=== PATIENT | female | born 1990 | race Caucasian/White ===

== ENCOUNTER 2017-04-30 15:44 | Emergency (ER) | payer OTHER ==
[~2017-04-30] VITALS: Ht 152.4 cm; Wt 85.9 kg
[~2017-04-30 15:44] MED LIST: DPPI400 INJ
[2017-04-30 15:56] VITALS: Ht 152.4 cm; Wt 85.9 kg
[2017-04-30] MEDS ORDERED: IBUPROFEN 600 MG TAB PO STA (16:05)
[2017-04-30] MEDS ORDERED: SPIR50TA2 PO (16:14)
--- NOTE | 2017-04-30 16:30 | DIAGNOSTIC IMAGING REPORT ---
L FINGER(S) MIN 2 VIEWS ROUTINE CLINICAL HISTORY: left thumb pain, IP joint, fall COMPARISON: None. DISCUSSION: The bones and joint spaces appear intact. There is no evidence of fracture, dislocation or bony disease. There is no evidence for soft tissue swelling. IMPRESSION: Negative study. The above report was generated using voice recognition software. It may contain grammatical, syntax or spelling errors. Electronically signed by: Dominik Chance M.D. 04/30/2017 4:29 PM Dictated Date/Time: 04/30/2017 4:28 PM
--- NOTE | 2017-04-30 16:50 | EMERGENCY ROOM VISIT NOTE ---
ED Visit Note First contact with patient: 16:00 CHIEF COMPLAINT: Left thumb pain HISTORY OF PRESENT ILLNESS: This 26-year-old female patient presented to the emergency department one day after they injured the thumb. The patient states she was at a bar last night, and as she was leaving the bar, she tripped over a step. She states she fell, landing on her left thumb. She denies any head injury. She states she was intoxicated so did not notice the pain at the time. When she woke this morning, she began experiencing significant pain in the interphalangeal joint. She is not having difficulty with flexion of the thumb. The patient has not taken any pain medication, and describes the pain as coming in waves and shooting up the arm. She rates the pain 8/10 and describes it as throbbing. The patient denies any numbness or tingling. The patient does not have injuries to the hand or wrist. The patient has not had a previous fracture to this hand. REVIEW OF SYSTEMS: A 6 system review of systems was completed with positives and pertinent negatives in the HPI. ALLERGIES: None MEDICATIONS: Xanax PMH: Anxiety SOCIAL HISTORY: The patient lives locally with family. She denies tobacco use. The patient admits to smoking marijuana and drinking alcohol. PHYSICAL EXAM: Vital Signs: Reviewed Nurse's notes, vital signs stable. GENERAL : This is a 26-year-old white female, in no acute distress, but appears to be in pain, well-developed, well-nourished. MUSCULOSKELETAL: There is no deformity of the left thumb. There is tenderness the inner phalangeal joint of the left thumb. There is no thenar or hypothenar eminence atrophy. Normal thumb opposition to all fingers. There is no tenderness of the other fingers or hand. No tenderness of the wrist. Industrial Chemicals Supervisor strength 5/5. There is no laceration. Capillary refill less than 2 seconds. Full range of motion of the wrist. No snuff box tenderness. Radial pulse 2+. NEURO: Alert and oriented to person, place, and time. Normal sensation to light and sharp touch. RADIOLOGY: L FINGER(S) MIN 2 VIEWS ROUTINE CLINICAL HISTORY: left thumb pain, IP joint, fall COMPARISON: None. DISCUSSION: The bones and joint spaces appear intact. There is no evidence of fracture, dislocation or bony disease. There is no evidence for soft tissue swelling. IMPRESSION: Negative study. The above report was generated using voice recognition software. It may contain grammatical, syntax or spelling errors. Electronically signed by: Dominik Chance M.D. 04/30/2017 4:29 PM Dictated Date/Time: 04/30/2017 4:28 PM EMERGENCY DEPARTMENT COURSE: I examined the patient. The patient was given a dose of ibuprofen and did report improvement in her symptoms. An x-ray of the left thumb was reviewed by myself and radiologist and shows acute fracture or dislocation. I offer the patient a finger splint, and she does request this be given to her. The patient was placed in a finger splint, and the position was satisfactory. Discharge instructions reviewed. The patient was discharged home in good condition. I attest that I have personally reviewed the patient's current medication list. Patient was found to have normal blood pressure on screening and does not require follow-up. DIFFERENTIAL DIAGNOSIS: Contusion, fracture, sprain, strain, malignancy, and others DIAGNOSIS: Left thumb contusion Current/Historical Medications Scheduled Spironolactone (Aldactone), 50 MG PO BID Allergies Coded Allergies: No Known Allergies (Verified , 04/30/17) Vital Signs Date Time Temp Pulse Resp B/P (MAP) Pulse Ox O2 Delivery O2 Flow Rate FiO2 04/30/17 17:03 36.4 100 18 112/65 100 Room Air 04/30/17 15:56 37.0 83 16 127/81 100 Room Air Medications Administered Medications (Trade) Dose Ordered Sig/Dinh Route Start Time Stop Time Status Last Admin Dose Admin Ibuprofen (Motrin Tab) 600 mg NOW STAT PO 04/30/17 16:05 04/30/17 16:07 DC 04/30/17 16:14 600 MG Departure Information Impression Primary Impression: Contusion of left thumb Dispostion Home / Self-Care Condition GOOD Referrals Kin Andrade M.D. (PCP) Patient Instructions ED Contusion Finger, My [facility] Additional Instructions You have seen in the emergency department today for a thumb contusion. X-ray did not reveal any fracture. Ibuprofen(Motrin, Advil) may be used for fever or pain. Use 600mg every six hours as needed. Take with food. Avoid using more than 2400mg in a 24 hour period. Do not use 2400mg per day for more than three consecutive days without physician direction. Prolonged inappropriate use can lead to stomach upset or ulcers. (AND/OR) Acetaminophen(Tylenol) may be used for fever or pain. Use 1000mg every six hours as needed. Avoid using more than 3000mg in a 24 hour period. You may wear the splint for comfort, but as I discussed, I do recommend that you keep the joints loose and active as it is tolerable. Please follow up with your PCP in 3-5 days for recheck and further management, especially if you're continuing to have problems with the thumb. Return to the emergency department for redness, worsening pain, puslike drainage , fever, or other concerning symptoms. Problem Qualifiers Primary Impression: Contusion of left thumb Encounter type: initial encounter Damage to nail status: without damage Qualified Codes: S60.012A - Contusion of left thumb without damage to nail, initial encounter
[2017-04-30 17:03] VITALS: BP 112/65; PULSE 100; TEMP 36.4; O2SAT 100
== END 2017-04-30 17:10 | disposition home or self-care (01) ==
LOC: C.EDB 15:45 → C.EDD 17:10
DX: S60.012A Contusion of left thumb without damage to nail, initial encounter (principal); W18.09XA Striking against other object with subsequent fall, initial encounter; F41.9 Anxiety disorder, unspecified; Z79.899 Other long term (current) drug therapy

== ENCOUNTER 2020-03-28 21:53 | Inpatient (IN) ==
--- OUTSIDE RECORDS SUMMARY | 2020-03-28 21:57 | External Medical Summary | Continuity of Care Document ---
:1990 Author Name Josue Lemus Address Unavailable Unavailable , Care Team Providers Name Role Phone Surya BARR Unavailable [email or web address] Enrico ORLANDO Unavailable Unavailable Unavailable Unavailable Unavailable Assessments Assessed Problems:Allergic rhinitisLaryngopharyngeal reflux (LPR) Problems Laryngopharyngeal reflux (LPR) (478.79) (K21.9) Allergic rhinitis (477.9) (J30.9) Crackling sound in right ear (388.8) (H93.8X1) Allergies and Adverse Reactions No Known Drug Allergies (Allergy) Medications Vitamin E TABS Refills: 0 Vitamin D3 TABS Refills: 0 Multivitamins TABS Refills: 0 Nexplanon IMPL Refills: 0 Spironolactone 100 MG Oral Tablet Refills: 0 Procedures History of wisdom tooth extraction Statu s: Completed History of Elbow Surgery Status: Complet ed Immunizations Immunizations not documented Family History Unknown Family Member Family history of sinusitis (V17.6) (Z83.6) Status: Active Comments: Family History Family history of cardiac disorder (V17.49) Status: Active Comments: Family History (Z82.49) Social History - Smoking Status Never smoked tobacco Plan of Treatment Planned Observations Planned Goals not documented Results No Known Results Results not documented Encounters Appointment; Jensen Delaney Au.D.|CCC-A 24-Sep-2018 9:40 Encounter Diagnosis: Problem not documented Appointment; Michelle London PA-C 24-Sep-2018 10:00 Encounter Diagnosis: Problem not documented"
[2020-03-28] MEDS ORDERED: OXYTOCIN 30 UNITS/500 ML BAG IV PRN (22:32)
[2020-03-28] MEDS ORDERED: LACTATED RINGER'S 1,000 ML IV PRN (22:32)
--- NOTE | 2020-03-28 22:54 | Anesthesiology Consultation ---
Date of Service March 28, 2020 Assessment & Plan Chart Review Chart Review: Acceptable Risk for Surgery and Patient NOT seen in Pre Admission Testing Consults Requested none ASA [id number] Proposed Anesthesia Anesthesia Type: Spinal Risk / Benefits Reviewed With: PT / POA / Parent / Guardian, Accepts Plan and Informed Consent Obtained Additional Comments: covid test negative History Surgery Operation Date: 03/28/20 22:00 Proposed Procedures p Section in LD - Giovanny Ortiz MD Height/Weight Height: 5 ft Weight: 101.151 kg Allergies Allergy/AdvReac Type Severity Reaction Status Date / Time oxycodone [From Percocet] AdvReac Mild nausea/vomi Verified 03/28/20 11:23 tting Medications Home Medications Medication Instructions Recorded Confirmed Last Taken cholecalciferol (vitamin D3) 50 mcg PO QAM 03/28/20 03/28/20 03/27/20 22:00 [Vitamin D3] fexofenadine [Leanna Allergy] 1 mg PO DAILY 03/28/20 03/28/20 03/27/20 22:00 [id number] 1 tab PO DAILY 03/28/20 03/28/20 03/27/20 22:00 [] valacyclovir [Valtrex] 500 mg PO DAILY 03/28/20 03/28/20 03/27/20 22:00 vitamin E 1,000 unit PO QAM 03/28/20 03/28/20 03/28/20 22:00 Active Medications Generic Name Dose Route Start Last Admin Trade Name Freq PRN Reason Stop Dose Admin Lactated Ringer's 1,000 mls @ 125 mls/hr 03/28/20 22:32 03/28/20 22:15 Lr IV 03/30/20 22:31 999 mls/hr .Q8H PRN Administration L&D Protocol Protocol NPO Date Last Intake of Fluids: 03/28/20 Time Last Intake of Fluids: 20:15 Date Last Intake of Solids: 03/28/20 Time Last Intake of Solids: 14:00 Past Medical History Medical History (Updated 03/28/20 @ 22:52 by Giovanny Ortiz MD) Gestational diabetes History of anxiety Lab test positive for detection of COVID-19 virus Exercise / Class Metabolic Activity II 4-5 Yardwork/Stairs/Walk up hill Past Surgical History Surgical History History of open reduction and internal fixation (ORIF) procedure left elbow History of repair of laceration as child from accident Hx of wisdom tooth extraction Past Anesthesia History No Hx of Anesthesia Complications and No Family Hx of Anesthesia Complications History of PONV No Hx of PONV and No Hx of Motion Sickness Social History Smoking Status: Never smoker Hx Alcohol Use: No Hx Substance Use: No substance use type: does not use Physical Exam Vital Signs Last Vital Signs Temp 37.1 C 03/28/20 22:11 Pulse 93 H 03/28/20 22:02 Resp 18 03/28/20 22:11 BP 142/91 H 03/28/20 22:02 Constitutional + morbidly obese ENMT Mouth: + small oral opening; no dentition abnormality Thyromental Distance: < 3.5 Finger Breadths Mallampati Class: II Neck normal visual inspection and trachea midline; neck extension not limited Respiratory normal respiratory effort Auscultation: lungs clear to auscultation bilaterally Cardiovascular Rate/Rhythm: regular rate and regular rhythm Heart Sounds: no murmur Vessels: no carotid bruit Musculoskeletal Spine: lumbar spine normal to inspection; normal cervical ROM Neurologic moves all extremities Motor/Sensory: no sensory deficit Psychiatric Orientation: alert and oriented x 3 Testing Laboratory Results 03/28/20 22:42 POC Glucose 82
--- NOTE | 2020-03-28 22:55 | History & Physical Report ---
Date of Service March 28, 2020 History of Present Illness 29 F P0000 at 38.6 weeks seen on L&D for SROM clear fluisd with breech presentation. No active contractions or bleeding. FHT Cat 1. Ultrasound done at bedside on admission confirms breech. Primary Care Provider: Kin Andrade MD Allergies Allergy/AdvReac Type Severity Reaction Status Date / Time oxycodone [From Percocet] AdvReac Mild nausea/vomi Verified 03/28/20 11:23 tting Home Medications Home Medications Medication Instructions Recorded Confirmed Type cholecalciferol (vitamin D3) 50 mcg PO QAM 03/28/20 03/28/20 History [Vitamin D3] fexofenadine [Leanna Allergy] 1 mg PO DAILY 03/28/20 03/28/20 History [id number] 1 tab PO DAILY 03/28/20 03/28/20 History [] valacyclovir [Valtrex] 500 mg PO DAILY 03/28/20 03/28/20 History vitamin E 1,000 unit PO QAM 03/28/20 03/28/20 History Past Med/Surg History Medical History (Updated 03/28/20 @ 22:52 by Giovanny Ortiz MD) Gestational diabetes History of anxiety Lab test positive for detection of COVID-19 virus Surgical History History of open reduction and internal fixation (ORIF) procedure left elbow History of repair of laceration as child from accident Hx of wisdom tooth extraction Social History (Updated 03/28/20 @ 22:54 by Giovanny Ortiz MD) Smoking Status: Never smoker Tobacco Type: Cigarettes Second Hand Exposure: No; Do You Dip or Chew Tobacco: No; Tobacco Cessation Education Requested by Patient: No Hx Alcohol Use: No Hx Substance Use: No Preferred Language: Estonian Communication Ability: Effective Sessions Clerk Required: No Beliefs That Will Affect Care: None marital status: Single Current Living Situation: Significant Other Current Living Situation Comment: kamala rodrigues How many Children do You have: 0 Other Information That Helps Us Care for You: Yes Feels Safe at Home: Yes Safety Concerns: Feels Safe At This Time Assistive Devices: None Review of Systems Review of Systems: All systems reviewed & are unremarkable except as noted in HPI & below Physical Exam Constitutional: WD/WN, vitals as above comfortable Cardiovascular: RRR, no murmur, no edema Gastrointestinal (Abdomen): Inspection/Auscultation: abdomen normal to inspection and + abdomen distended Percussion/Palpation: abdomen soft gravid uterus Skin: no rashes, warm and dry Neurologic: patellar DTR's 2+ bilat, sensation intact Psychiatric: A+Ox3, euthymic affect Genitourinary: no vaginal lesions, no adnexal mass normal external appearance OB Exam Abdomen: + heart tones and + breech OB Exam Monitor Tracing: + external FHT monitor used, + external uterine monitor used, + category I and + normal FHT variability Results & Data Results & Data ([facility]) Vital Signs (Past 12 Hours) Vital Signs Temp Pulse Resp BP 03/28/20 22:11 37.1 C 18 03/28/20 22:02 93 H 142/91 H Code Status & VTE Plan VTE Prophylaxis Plan VTE Prophylaxis will be ordered: Yes
--- NOTE | 2020-03-28 22:59 | Obstetrical Progress Note ---
Date of Service March 28, 2020 Subjective Admit Note 29 F P0000 at 38.6 weeks admitted with SROM clear fluid and breech presentation. Ultrasound done at bedside confirms position. FHT Cat 1. GBS is negative. GDM controlled by diet with POC sugar 82. Consents signed. Results & Data ([facility]) Vital Signs (Past 12 Hours) Vital Signs Temp Pulse Resp BP 03/28/20 22:11 37.1 C 18 03/28/20 22:02 93 H 142/91 H
[2020-03-28] MEDS ORDERED: OXYTOCIN 10 UNITS/ML VIAL ONE (23:02)
[2020-03-28] MEDS ORDERED: MoRPHine SULFATE PF 1 MG/ML 10 ML AMP/VIAL ONE (23:03)
[2020-03-28] MEDS ORDERED: fentaNYL citrate 100 MCG/2 ML VIAL ONE (23:03)
[2020-03-28] MEDS ORDERED: PHENYLEPHRINE HCL 10 MG/ML VIAL ONE (23:04)
[2020-03-28 23:07] LABS: Basophils # (auto) 0.02 K/uL (0-0.2); Basophils % (auto) 0.2 %; Eosinophils # (auto) 0.04 K/uL (0-0.5); Eosinophils % (auto) 0.4 %; Hematocrit (blood only) 33.4 % (37-47); Hemoglobin 11.2 g/dL (12.0-16.0); Immature Granulocytes # (auto) 0.02 K/uL (0.00-0.02); Immature Granulocytes % (auto) 0.2 %; Lymphocytes # (auto) 1.95 K/uL (1.2-3.4); Lymphocytes % (auto) 21.9 %; Mean Corpuscular Hemoglobin 29.2 pg (25-34); Mean Corpuscular Volume 87.2 fL (80-100); Mean Platelet Volume 10.1 fL (7.4-10.4); Monocytes # (auto) 0.65 K/uL (0.11-0.59); Monocytes % (auto) 7.3 %; Neutrophils # (auto) 6.21 K/uL (1.4-6.5); Platelet Count 297 K/uL (130-400); RDW Coefficient of Variation 14.2 % (11.5-14.5); RDW Standard Deviation 45.9 fL (36.4-46.3); Red Blood Count 3.83 M/uL (4.2-5.4); White Blood Count 8.89 K/uL (4.8-10.8)
[2020-03-28 23:11] LABS: Mean Corpuscular Hgb Conc 33.5 g/dL (32-36)
[2020-03-29] MEDS ORDERED: OXYTOCIN 10 UNITS/ML VIAL ONE (00:01)
[2020-03-29] MEDS ORDERED: NALOXONE HCL 0.08 MG in SYRINGE 1.8 ML IV PRN (00:34)
[2020-03-29] MEDS ORDERED: NALOXONE HCL 0.4 MG/1 ML VIAL/CARP IV PRN (00:34)
[2020-03-29] MEDS ORDERED: ePHEDrine sulfate 50 MG/ML AMP IV PRN (00:34)
[2020-03-29] MEDS ORDERED: LACTATED RINGER'S 500 ML IV PRN (00:34)
[2020-03-29] MEDS ORDERED: MoRPHine SULFATE PF 1 MG/ML 10 ML AMP/VIAL INT SPINAL ONE (00:34)
[2020-03-29] MEDS ORDERED: diphenhydrAMINE 50 MG/ML VIAL IV PRN ×2 (00:34→01:06)
[2020-03-29] MEDS ORDERED: PROMETHAZINE HCL 25 MG in SODIUM CHLORIDE 0.9% 50 ML IV PRN ×2 (00:34→01:06)
[2020-03-29] MEDS ORDERED: ONDANSETRON INJ 2 MG/ML 2 ML VIAL IV PRN ×2 (00:34→01:06)
[2020-03-29] MEDS ORDERED: NALOXONE HCL 1 MG in SODIUM CHLORIDE 0.9% 1000ML 1,000 ML IV PRN (00:34)
--- NOTE | 2020-03-29 00:37 | Anesthesiology Progress Note ---
Date of Service March 29, 2020 Anesthesia Post Procedure Vital Signs Vital Signs: Temp Pulse Resp BP Pulse Ox 03/29/20 00:32 80 98 03/29/20 00:31 77 125/68 03/28/20 22:11 37.1 C 18 03/28/20 22:02 93 H 142/91 H Transfer of Care Handoff Completed per policy Notes Mental Status: alert / awake / arousable Patient Amnestic to Procedure: Yes Nausea / Vomiting: adequately controlled Pain: adequately controlled Airway Patency, RR, SpO2: stable & adequate BP & HR: stable & adequate Hydration State: stable & adequate Neuraxial Anesthesia: was administered and sensory block is resolving Anesthetic Complications: no major complications apparent
--- NOTE | 2020-03-29 00:41 | Post Operative Brief Note ---
Immediate Post Op Note v1 Date of Surgery March 29, 2020 Pre & Post Diagnosis Operation Date: 03/28/20 22:00 Pre-Op Diagnosis: Term , 38 6/7 weeks Breech Spontaneous Rutpure of membranes Post-Op Diagnosis: Term , 38 6/7 weeks Breech Spontaneous Rutpure of membranes I identified the patient and participated in the time-out.: Yes Procedure Operation Date: 03/28/20 22:00 Actual Procedures p primary section. Live male infant at 2352 - Giovanny Ortiz MD Surgeon Giovanny Ortiz MD Builder Operator Dr. Baxter Estimated Blood Loss 600 Findings Consistent with Post-Op Diagnosis Live male Apgars 9/10 weight pending nico breech presentation Fluids 1500 ml. LR Specimens cord blood placenta Drains Henson Catheter Anesthesia Type Spinal Complications none Disposition Accompanied Patient To Recovery: Yes Disposition: L&D Overlapping Procedure I was present for: the critical portions of procedure. I was immediately available: during the entire case. Back up surgeon: used during listed procedure.
[2020-03-29 00:45] LABS: Amphetamines+Metham, Urine Neg (Neg); Barbiturates, Urine Neg (Neg); Benzodiazepine, Urine Neg (Neg); Cocaine, Urine Neg (Neg); MDMA (Ecstacy), Urine Neg (Neg); Methadone, Urine Neg (Neg); Opiate, Urine Neg (Neg); Phencyclidine, Urine Neg (Neg)
[2020-03-29] MEDS ORDERED: SODIUM CHLORIDE 0.9% 1000ML 1,000 ML IV SCH (00:45)
[2020-03-29] MEDS ORDERED: NO NARCOTICS OR SEDATIVES SCH (00:45)
[2020-03-29] MEDS ORDERED: DC INTRASPINAL MORPHINE SCH (00:45)
[2020-03-29] MEDS ORDERED: ACETAMINOPHEN 1000 MG/100 ML IV IV PRN (01:06)
[2020-03-29] MEDS ORDERED: BENZOCAINE 20% AER SPR 82.5 GM CAN EXT PRN (01:06)
[2020-03-29] MEDS ORDERED: DIPHTHERIA/TETANUS/PERTUSSIS 0.5 ML SYR/VIAL IM ONE (01:06)
[2020-03-29] MEDS ORDERED: HYDROCORTISONE ACETATE 25 MG SUPP PR PRN (01:06)
[2020-03-29] MEDS ORDERED: SUPERCREAM 0.870% 15 GM JAR EXT PRN ×2 (01:06→01:18)
[2020-03-29] MEDS ORDERED: LACTATED RINGER'S 1,000 ML IV SCH ×2 (01:06→09:30)
[2020-03-29] MEDS ORDERED: SENNA 8.6 MG TAB PO PRN ×2 (01:06→01:18)
[2020-03-29] MEDS ORDERED: MAGNESIUM HYDROXIDE SUSP 30 ML UDC PO PRN ×2 (01:06→01:18)
[2020-03-29] MEDS ORDERED: diphenhydrAMINE Capsule 25 MG CAP PO PRN (01:18)
[2020-03-29] MEDS: OXYTOCIN 30 UNITS in LACTATED RINGER'S 1,000 ML IV SCH ×2 (02:30→10:13)
[2020-03-29] MEDS: KETOROLAC 30 MG/ML VIAL IV PRN ×2 (07:39→14:34)
[2020-03-29] MEDS: PRENATAL VITAMIN 1 TAB PO SCH (07:40)
[2020-03-29] MEDS: SIMETHICONE 80 MG CHEW PO SCH ×4 (07:40→20:48)
[2020-03-29] MEDS: DOCUSATE SODIUM 100 MG CAP PO SCH ×2 (07:40→20:48)
[2020-03-29] MEDS: FERROUS SULFATE 325 MG TAB PO SCH (07:41)
[2020-03-29] MEDS: CHOLECALCIFEROL 1,000 UNITS 25 MCG TAB PO SCH (07:44)
[2020-03-29] MEDS: FEXOFENADINE 60 MG TAB PO SCH (07:50)
--- NOTE | 2020-03-29 07:59 | Operative Report (OR) ---
DATE OF OPERATION: 03/28/2020 PREOPERATIVE DIAGNOSIS: Term with breech presentation. POSTOPERATIVE DIAGNOSIS: Term with breech presentation. PROCEDURE: Primary section, low segment, transverse. SURGEON: Giovanny Ortiz MD MACHINE SHORTHAND TEACHER: Dany Baxter MD ANESTHESIA: Spinal. FINDINGS: Live male, Apgars 9 and 10. weight pending. COMPLICATIONS: None. FLUIDS: LR 1500 mL. ESTIMATED BLOOD LOSS: 600 mL. URINE OUTPUT: 200 mL. COMPLICATIONS: None. SPECIMENS: Cord blood and placenta. CLINICAL HISTORY: The patient is a 29-year-old female 1, para 0 who presents at 38.6 weeks with spontaneous rupture of membranes, clear fluid, not actively km. The patient was confirmed to be breech by ultrasound at the bedside. She was consented for a primary section. Timeout was called prior to the start of the procedure and antibiotics were given preop. DESCRIPTION OF PROCEDURE: Under satisfactory spinal anesthesia, the patient was prepped and draped in usual sterile fashion. A low Pfannenstiel incision entering into the abdominal cavity was carried down through successive layers without difficulty. Upon entering into the peritoneal cavity, the Wil retractor was inserted. Pickups with teeth and Metzenbaums were then used to sharply dissect a bladder flap. This was then gently pushed down. A low segment transverse incision over the lower uterine segment was made. The incision was nicked. Amniotic fluid was noted to be clear. The incision was then widened in the AP diameter. The was then delivered from the nico breech presentation without difficulty delivering a live male. Apgars were 9 and 10. There was a delayed cord clamping and the baby was handed to commercial announcer for warming. weight was pending. Cord blood was obtained. The placenta was then delivered manually and intact, submitted to pathology as a separate specimen. Uterus was then exteriorized. Ring forceps were then placed on both angles in the inferior margin. Uterus closed in double layer closure with 0 Vicryl suture in a continuous interlocking fashion followed by second imbricating suture. Tubes, ovaries bilaterally were found to be within normal limits. The initial sponge, needle, and instrument count were found to be correct. The Wil retractor was then removed. The fascia was then reapproximated from both ends using 0 Vicryl suture in a continuous fashion. Subcuticular space was irrigated and then closed with 3-0 plain suture and the skin was reapproximated with lara. Final sponge, needle and instrument count were found to be correct. EBL 600 mL, total fluids 1500 mL, and urine output is 200 mL. The patient was then placed supine on a stretcher and taken to recovery room in stable condition. Dr. Baxter was the visitor use assistant and was necessary for retraction and help deliver the breech with fundal pressure. I attest to the content of the Intraoperative Record and any orders documented therein. Any exception s are noted below.
[2020-03-29] MEDS ORDERED: FERROUS SULFATE 325 MG TAB PO SCH (08:00)
[2020-03-29] MEDS ORDERED: SIMETHICONE 80 MG CHEW PO SCH (08:00)
[2020-03-29] MEDS ORDERED: PRENATAL VITAMIN 1 TAB PO SCH (08:00)
[2020-03-29] MEDS ORDERED: DOCUSATE SODIUM 100 MG CAP PO SCH (08:00)
[2020-03-29] MEDS ORDERED: NON-FORMULARY MEDICATION (Vitamin E 1,000 UNITS) PO SCH (09:00)
[2020-03-29] MEDS ORDERED: PRENATAL MULTIVIT MIN FE FA PO SCH (09:00)
[2020-03-29] MEDS ORDERED: FEXOFENADINE 60 MG TAB PO SCH (09:00)
[2020-03-29] MEDS: IBUPROFEN 600 MG TAB PO PRN (20:47)
[2020-03-29] MEDS ORDERED: Nursing to Pharmacy Communication SCH (21:30)
[2020-03-30] MEDS ORDERED: PROMETHAZINE HCL 25 MG in SODIUM CHLORIDE 0.9% 50 ML IV PRN (00:44)
[2020-03-30] MEDS ORDERED: diphenhydrAMINE 50 MG/ML VIAL IV PRN (00:44)
[2020-03-30] MEDS ORDERED: diphenhydrAMINE Capsule 25 MG CAP PO PRN (00:44)
[2020-03-30] MEDS ORDERED: MEPERIDINE HCL 50 MG/ML CARP IV PRN (00:44)
[2020-03-30] MEDS ORDERED: KETOROLAC 30 MG/ML VIAL IV PRN (00:44)
[2020-03-30] MEDS ORDERED: ONDANSETRON INJ 2 MG/ML 2 ML VIAL IV PRN (00:44)
[2020-03-30] MEDS: IBUPROFEN 600 MG TAB PO PRN ×4 (04:50→19:12)
[2020-03-30 06:57] LABS: Mean Corpuscular Hgb Conc 32.2 g/dL (32-36); Mean Platelet Volume 10.2 fL (7.4-10.4); Platelet Count 273 K/uL (130-400)
[2020-03-30 07:20] LABS: Basophils # (auto) 0.02 K/uL (0-0.2); Basophils % (auto) 0.2 %; Eosinophils # (auto) 0.09 K/uL (0-0.5); Hematocrit (blood only) 32.3 % (37-47); Hemoglobin 10.4 g/dL (12.0-16.0); Immature Granulocytes # (auto) 0.03 K/uL (0.00-0.02); Immature Granulocytes % (auto) 0.3 %; Lymphocytes # (auto) 1.59 K/uL (1.2-3.4); Lymphocytes % (auto) 17.2 %; Mean Corpuscular Hemoglobin 28.1 pg (25-34); Mean Corpuscular Volume 87.3 fL (80-100); Monocytes # (auto) 0.71 K/uL (0.11-0.59); Monocytes % (auto) 7.7 %; Neutrophils # (auto) 6.82 K/uL (1.4-6.5); Neutrophils % (auto) 73.6 %; RDW Coefficient of Variation 14.4 % (11.5-14.5); White Blood Count 9.26 K/uL (4.8-10.8)
[2020-03-30] MEDS: DOCUSATE SODIUM 100 MG CAP PO SCH ×2 (08:26→21:26)
[2020-03-30] MEDS: PRENATAL VITAMIN 1 TAB PO SCH (08:27)
[2020-03-30] MEDS: FERROUS SULFATE 325 MG TAB PO SCH (08:27)
[2020-03-30] MEDS: SIMETHICONE 80 MG CHEW PO SCH ×3 (08:27→21:26)
--- NOTE | 2020-03-30 09:09 | Obstetrical Progress Note ---
Date of Service March 30, 2020 Assessment & Plan Admission and Anticipated Discharge Date Admission Date: March 28, 2020 Physical Exam Physical Exam: abdomen soft and non tender bandage removed incision is clean and dry no calf tenderness passing flatus vaginal bleeding scant hgb 10.4 Results & Data ([facility]) Vital Signs (Past 12 Hours) Vital Signs Resp Pulse Ox 03/29/20 23:20 18 98 03/29/20 22:30 18 100 03/29/20 21:30 18 99
[2020-03-30] MEDS: CHOLECALCIFEROL 1,000 UNITS 25 MCG TAB PO SCH (10:19)
[2020-03-30] MEDS: FEXOFENADINE 60 MG TAB PO SCH (10:20)
[2020-03-30] MEDS ORDERED: bisacodyL 5 MG TABEC PO SCH ×2 (20:00)
[2020-03-30] MEDS: ACETAMINOPHEN W/CODEINE #3 1 TAB PO PRN (22:01)
[2020-03-31] MEDS ORDERED: bisacodyL 10 MG SUPP PR PRN ×2 (00:42→01:18)
[2020-03-31] MEDS: IBUPROFEN 600 MG TAB PO PRN ×2 (03:36→08:38)
[2020-03-31] MEDS: ACETAMINOPHEN W/CODEINE #3 1 TAB PO PRN ×2 (03:36→08:37)
[2020-03-31 06:51] LABS: Hematocrit (blood only) 30.7 % (37-47); Hemoglobin 10.2 g/dL (12.0-16.0)
[2020-03-31] MEDS: PRENATAL VITAMIN 1 TAB PO SCH (08:37)
[2020-03-31] MEDS: DOCUSATE SODIUM 100 MG CAP PO SCH (08:37)
[2020-03-31] MEDS: FERROUS SULFATE 325 MG TAB PO SCH (08:38)
[2020-03-31] MEDS: SIMETHICONE 80 MG CHEW PO SCH (08:38)
[2020-03-31] MEDS: FEXOFENADINE 60 MG TAB PO SCH (08:40)
[2020-03-31] MEDS: CHOLECALCIFEROL 1,000 UNITS 25 MCG TAB PO SCH (08:40)
--- NOTE | 2020-03-31 10:04 | Obstetrical Progress Note ---
Date of Service March 31, 2020 Assessment & Plan (1) delivery delivered: Pt doing well No complaints disch home with instructions Subjective Ambulation: ambulating normally Voiding: no voiding problems Passing Gas:: Yes Diet Tolerance:: clear liquids Lochia:: Small Feeding Type:: breast feeding Review of Systems All systems reviewed & are unremarkable except as noted in HPI & below Physical Exam Constitutional WD/WN, vitals as above well developed and well nourished Eyes PERRL, conjunctivae normal, anicteric sclerae ENMT external ear and nose normal, oropharynx normal Neck trachea midline, no thyromegaly Respiratory normal respiratory effort, lungs clear to auscultation Cardiovascular RRR, no murmur, no edema Chest (Breasts) normal inspection/palpation of breasts Gastrointestinal (Abdomen) normal bowel sounds, soft, nontender, no hepatosplenomegaly Musculoskeletal no cyanosis or clubbing, extremities motor strength 5/5 Skin no rashes, warm and dry + incision (Clean,dry and intact) Neurologic patellar DTR's 2+ bilat, sensation intact Psychiatric A+Ox3, euthymic affect Genitourinary normal external appearance Lymphatic no cervical or axillary lymphadenopathy Results & Data ([facility]) Vital Signs (Past 12 Hours) Vital Signs Temp Pulse Resp BP Pulse Ox 03/30/20 23:15 36.8 C 96 H 17 137/84 98
--- NOTE | 2020-03-31 10:32 | Discharge Summary (DS) ---
DATE OF DISCHARGE: 03/31/2020 HISTORY OF PRESENT ILLNESS: This is a 29-year-old G1, P0, who presented to labor and delivery on 03/28/2020 with ruptured membranes. The patient's due date was 04/05/2020 making her 39 weeks on the date of presentation. The patient was scheduled section because of breech presentation. She went on to have section on that date 03/28/2020, delivered a live . Details of surgery and pediatric information on the respective records. Surgery was otherwise unremarkable. The patient did well and met all milestones in recovery on postop day 1 and 2. The patient is being discharged home in stable condition today. PAST MEDICAL HISTORY: History of gestational diabetes, anxiety and history of COVID-19 in December. PAST SURGICAL HISTORY: History of dental surgery and open reduction and internal fixation. SOCIAL HISTORY: The patient is and lives with spouse. Denies drug, tobacco or alcohol use. FAMILY HISTORY: Noncontributory. ALLERGIES: THE PATIENT REPORTS ALLERGY TO PERCOCET. SHE HAS NAUSEA AND VOMITING WITH PERCOCET. REVIEW OF SYSTEMS and negative except as dictated in the HPI. PHYSICAL EXAMINATION: GENERAL: Well-developed, well-nourished black female in no acute distress. VITAL SIGNS: 137/84, pulse rate 96, respirations 17, temperature 36.8. HEART: S1, S2, regular rhythm and rate. LUNGS: Clear to auscultation bilaterally. ABDOMEN: Nontender, nondistended. Incision clean, dry and intact. Bernardo used for the incision ____ VITALS: This morning, blood pressure 137/84, pulse 96, respirations 17, temperature 36.8. LABS: Hemoglobin 10.2, hematocrit is 30.7. CONDITION ON DISCHARGE: Stable. OPERATION: section. DISCHARGE DIAGNOSIS: Postoperative section. PLAN ON DISCHARGE: The patient is discharged home with instructions regarding activity, diet and followup appointments.
== END 2020-03-31 11:30 | disposition home or self-care (01) | DRG 788 ==
LOC: OPB 21:53 → 4S1 21:53 → 4S2 03-29 03:33